=== PATIENT | male | born 1985 | race Caucasian/White ===

== ENCOUNTER 2016-10-16 20:31 | Emergency (ER) | payer OTHER ==
[~2016-10-16] VITALS: Ht 190.5 cm; Wt 81.6 kg
[~2016-10-16 20:31] MED LIST: CIPROFLOXACIN500 MG PO; CLARITIN10 MG PO; METRONIDAZOLE500 MG PO; MOTRIN800 MG PO; Motrin,Rufen800 MG PO; Orphenadrine C100 MG PO; PEPCID20 MG PO; PROTONIX TR40 MG PO; ZITHROMAX Z PA250 MG PO; ZOFRAN4 MG PO; [UNRECOGNIZED DRUG - REMARK]
[2016-10-16] MEDS ORDERED: CLINDAMYCIN HC300 MG PO (21:31)
== END 2016-10-16 21:36 | disposition home or self-care (01) ==
LOC: ED 20:31
DX: K02.9 Dental caries, unspecified (principal)

== ENCOUNTER 2016-11-06 14:54 | Emergency (ER) | payer OTHER ==
[~2016-11-06] VITALS: Ht 190.5 cm; Wt 81.6 kg
[~2016-11-06 14:54] MED LIST changes: +CLINDAMYCIN HC300 MG PO
[2016-11-06] MEDS ORDERED: KEFLEX500 M1 PO (16:26)
[2016-11-06] MEDS ORDERED: NAPROSYN500 MG PO (16:26)
== END 2016-11-06 17:37 | disposition home or self-care (01) ==
LOC: ED 14:54
DX: S82.891A Other fracture of right lower leg, initial encounter for closed fracture (principal); S01.01XA Laceration without foreign body of scalp, initial encounter; M54.2 Cervicalgia; M54.6 Pain in thoracic spine; W19.XXXA Unspecified fall, initial encounter; Y93.89 Activity, other specified; Y92.89 Other specified places as the place of occurrence of the external cause; Y99.9 Unspecified external cause status

== ENCOUNTER 2017-10-27 12:40 | Emergency (ER) | payer OTHER ==
[~2017-10-27] VITALS: Ht 190.5 cm; Wt 61.2 kg
--- NOTE | ~2017-10-27 | EKG ---
[place], [place] ELECTROCARDIOGRAM REPORT NAME: JENNIFER COHEN UNIT #: [id number] ROOM: DOCTOR: DEEDEE DRAFT REPORT BIRTHDATE: [birth year] [facility] Test Date: 2017-10-27 Test Time: 13:14:20 Pat Name: JENNIFER COHEN Department: Room: Gender: Industrial Electrical Technician: ANTONIO : 1985 Requested By: MARY KATE COREA Order Number: [id number] Reading MD: Franky Agrawal MD Measurements Intervals [place] Rate: 74 P: 84 NH: 140 QRS: 78 QRSD: 91 T: 70 QT: 406 QTc: 451 Interpretive Statements Sinus rhythm LVH by voltage Electronically Signed On 11-01-2017 14:21:02 PDT by Franky Agrawal MD CM:EKGRPT:ELECTROCARDIOGRAM REPORT 1314 1421 MARY KATE MARK DRAFT REPORT MARY KATE CORAE MD
[~2017-10-27 12:40] MED LIST changes: +KEFLEX500 M1 PO; +NAPROSYN500 MG PO
[2017-10-27 13:41] LABS: BASO % 0.9 % (0.0-1.0); EOS # 0.1 10*3/uL (0.0-0.4); EOS % 2.8 % (1.0-4.0); HEMATOCRIT 46.2 % (42.0-52.0); HEMOGLOBIN 15.3 g/dl (14.0-18.0); LYMPH # 1.1 10*3/uL (1.3-4.4); LYMPH % 23.9 % (27.0-41.0); MEAN CELL VOLUME 90.1 fl (80.0-94.0); MEAN CORPUSCULAR HGB 29.8 pg (27.0-31.0); MEAN CORPUSCULAR HGB CONC 33.1 g/dl (33.0-37.0); MEAN PLATELET VOLUME 9.7 fl (9.6-12.3); MONO # 0.3 10*3/uL (0.1-1.0); MONO % 6.8 % (3.0-9.0); NEUT # 3.1 10*3/uL (2.3-7.9); NEUT % 65.4 % (47.0-73.0); PLATELET COUNT AUTOMATED 179 10*3/uL (130-400); RED BLOOD COUNT 5.13 10*6/uL (4.50-5.90); RED CELL DISTRI WIDTH 12.4 % (0-14.5); WHITE BLOOD COUNT 4.7 10*3/uL (4.8-10.8)
[2017-10-27 13:47] LABS: ACT PARTIAL THROMBO TIME 24.8 SECONDS (20.8-31.5)
[2017-10-27 13:51] LABS: ALBUMIN 4.5 gm/dl (3.1-4.5); ALKALINE PHOSPHATASE 88 U/L (45-117); BUN 13 mg/dl (7-24); CHLORIDE 105 mmol/L (98-107); POTASSIUM 4.1 mmol/L (3.5-5.1); SGOT/AST 28 IU/L (3-35); SGPT/ALT 23 U/L (12-78); SODIUM 142 mmol/L (136-145); TOTAL PROTEIN 7.7 gm/dL (6.4-8.2)
[2017-10-27 14:01] LABS: TROPONIN I < 0.015 ng/ml (<0.045)
[2017-10-27 15:10] LABS: URINE AMPHETAMINES < 1000 (1000ng/ml); URINE BARBITURATES < 200 (200ng/ml); URINE BENZODIAZEPINES < 200 (200ng/ml); URINE CANNABINOIDS (THC) < 50 (50ng/ml); URINE COCAINE < 300 (300ng/ml); URINE METHADONE < 300 (300ng/ml); URINE OPIATES < 300 (300ng/ml); URINE PHENCYCLIDINE < 25 (25ng/ml)
== END 2017-10-27 17:38 | disposition home or self-care (01) ==
LOC: ED 12:40
PROVIDERS: Emergency Medicine
DX: R07.89 Other chest pain (principal)

== ENCOUNTER 2018-02-03 12:01 | Emergency (ER) | payer OTHER ==
[~2018-02-03] VITALS: Ht 187.9 cm; Wt 54.4 kg
[2018-02-03 12:59] LABS: BASO % 0.2 % (0.0-1.0); EOS % 0.4 % (1.0-4.0); HEMOGLOBIN 13.7 g/dl (14.0-18.0); LYMPH # 0.9 10*3/uL (1.3-4.4); MEAN CELL VOLUME 87.3 fl (80.0-94.0); MEAN CORPUSCULAR HGB 29.9 pg (27.0-31.0); MEAN CORPUSCULAR HGB CONC 34.3 g/dl (33.0-37.0); MEAN PLATELET VOLUME 9.8 fl (9.6-12.3); MONO # 0.6 10*3/uL (0.1-1.0); MONO % 6.3 % (3.0-9.0); NEUT # 7.9 10*3/uL (2.3-7.9); NEUT % 83.9 % (47.0-73.0); PLATELET COUNT AUTOMATED 141 10*3/uL (130-400); RED BLOOD COUNT 4.58 10*6/uL (4.50-5.90); RED CELL DISTRI WIDTH 12.4 % (0-14.5); WHITE BLOOD COUNT 9.4 10*3/uL (4.8-10.8)
[2018-02-03 13:15] LABS: ALBUMIN 3.4 gm/dl (3.1-4.5); ALKALINE PHOSPHATASE 70 U/L (45-117); BUN 14 mg/dl (7-24); CHLORIDE 105 mmol/L (98-107); CREATININE 0.81 mg/dL (0.70-1.30); LIPASE 80 U/L (73-393); POTASSIUM 3.6 mmol/L (3.5-5.1); SGOT/AST 16 IU/L (3-35); SGPT/ALT 15 U/L (12-78); SODIUM 140 mmol/L (136-145); TOTAL PROTEIN 6.7 gm/dL (6.4-8.2)
[2018-02-03 13:33] LABS: BILIRUBIN NEGATIVE (NEGATIVE); BLOOD NEGATIVE (NEGATIVE); CLARITY CLEAR (CLEAR); COLOR YELLOW (YELLOW); GLUCOSE NEGATIVE (NEGATIVE); KETONE TRACE (NEGATIVE); LEUKO ESTERASE NEGATIVE (NEGATIVE); NITRITE POSITIVE (NEGATIVE)
[2018-02-03 13:57] LABS: MUCOUS 1+; RBC 0-2 rbc/hpf (0-2)
[2018-02-03] MEDS ORDERED: MIRALAX POWDER17 G1 PO (14:06)
[2018-02-03] MEDS ORDERED: CIPRO500 MG PO (14:06)
== END 2018-02-03 14:09 | disposition home or self-care (01) ==
LOC: ED 12:01
PROVIDERS: Physician Assistant
DX: N39.0 Urinary tract infection, site not specified (principal); K59.00 Constipation, unspecified; R05 Cough

== ENCOUNTER 2018-05-29 16:10 | Emergency (ER) | payer OTHER ==
[~2018-05-29] VITALS: Ht 193 cm; Wt 59.0 kg
[~2018-05-29 16:10] MED LIST changes: +CIPRO500 MG PO; +MIRALAX POWDER17 G1 PO
[2018-05-29] MEDS ORDERED: AUGMENTIN 875875 MG PO (16:40)
[2018-05-29] MEDS ORDERED: ZYRTEC10 MG PO (16:40)
[2018-05-29] MEDS ORDERED: FLONASE ALLERG9.9 ML NAS (16:40)
[2018-05-29] MEDS ORDERED: Tobrex Ophth S2.5 ML OPH (16:40)
== END 2018-05-29 17:14 | disposition home or self-care (01) ==
LOC: ED 16:10
DX: J01.00 Acute maxillary sinusitis, unspecified (principal); H10.9 Unspecified conjunctivitis; F17.200 Nicotine dependence, unspecified, uncomplicated; Z79.2 Long term (current) use of antibiotics; Z79.899 Other long term (current) drug therapy

== ENCOUNTER 2018-08-29 22:34 | Emergency (ER) | payer OTHER ==
[~2018-08-29] VITALS: Ht 190.5 cm; Wt 60.8 kg
[~2018-08-29 22:34] MED LIST changes: +AUGMENTIN 875875 MG PO; +FLONASE ALLERG9.9 ML NAS; +Tobrex Ophth S2.5 ML OPH; +ZYRTEC10 MG PO
[2018-08-29 23:10] LABS: HEMATOCRIT 43.6 % (42.0-52.0); HEMOGLOBIN 14.8 g/dl (14.0-18.0); MEAN CELL VOLUME 88.3 fl (80.0-94.0); MEAN CORPUSCULAR HGB CONC 33.9 g/dl (33.0-37.0); MEAN PLATELET VOLUME 9.7 fl (9.6-12.3); PLATELET COUNT AUTOMATED 148 10*3/uL (130-400); RED BLOOD COUNT 4.94 10*6/uL (4.50-5.90); RED CELL DISTRI WIDTH 12.9 % (0-14.5); WHITE BLOOD COUNT 7.8 10*3/uL (4.8-10.8)
[2018-08-29 23:26] LABS: ALBUMIN 3.8 gm/dl (3.1-4.5); ALKALINE PHOSPHATASE 67 U/L (45-117); BUN 20 mg/dl (7-24); CHLORIDE 104 mmol/L (98-107); CREATININE 0.82 mg/dL (0.70-1.30); LIPASE 43 U/L (73-393); SGOT/AST 18 IU/L (3-35); SGPT/ALT 19 U/L (12-78); SODIUM 139 mmol/L (136-145)
[2018-08-29 23:32] LABS: PLATELET SUFFICIENCY LOW (NORMAL); TOTAL CELLS COUNTED 100 #CELLS
== END 2018-08-30 01:37 | disposition home or self-care (01) ==
LOC: ED 22:34
PROVIDERS: Student in an Organized Health Care Education/Training Program
DX: R11.2 Nausea with vomiting, unspecified (principal); R10.32 Left lower quadrant pain; R30.0 Dysuria; Z79.2 Long term (current) use of antibiotics; Z79.899 Other long term (current) drug therapy

== ENCOUNTER 2018-11-07 17:29 | Emergency (ER) | payer OTHER ==
[~2018-11-07] VITALS: Ht 190.5 cm; Wt 59.4 kg
[2018-11-07] MEDS ORDERED: LIDEX 0.05% CRE15 GM T (17:44)
== END 2018-11-07 18:19 | disposition home or self-care (01) ==
LOC: ED 17:29
DX: T63.441A Toxic effect of venom of bees, accidental (unintentional), initial encounter (principal); L53.0 Toxic erythema; Z79.2 Long term (current) use of antibiotics; Z79.899 Other long term (current) drug therapy; Y92.89 Other specified places as the place of occurrence of the external cause

== ENCOUNTER 2019-03-14 17:55 | Emergency (ER) | payer OTHER ==
[~2019-03-14] VITALS: Ht 193 cm; Wt 65.8 kg
[~2019-03-14 17:55] MED LIST changes: +LIDEX 0.05% CRE15 GM T
[2019-03-14] MEDS ORDERED: PENICILLIN VK500 MG PO (18:26)
== END 2019-03-14 18:35 | disposition home or self-care (01) ==
LOC: ED 17:55
DX: K04.7 Periapical abscess without sinus (principal); G43.909 Migraine, unspecified, not intractable, without status migrainosus

== ENCOUNTER 2020-03-25 17:13 | Emergency (ER) | payer OTHER ==
[~2020-03-25] VITALS: Wt 59.0 kg
[~2020-03-25 17:13] MED LIST changes: +PENICILLIN VK500 MG PO
[2020-03-25 19:11] LABS: BASO % 0.3 % (0.0-1.0); EOS # 0.1 10*3/uL (0.0-0.4); HEMATOCRIT 43.6 % (42.0-52.0); LYMPH # 0.8 10*3/uL (1.3-4.4); LYMPH % 11.8 % (27.0-41.0); MEAN CELL VOLUME 86.5 fl (80.0-94.0); MEAN CORPUSCULAR HGB 28.6 pg (27.0-31.0); MONO # 0.3 10*3/uL (0.1-1.0); MONO % 5.1 % (3.0-9.0); NEUT # 5.4 10*3/uL (2.3-7.9); NEUT % 81.5 % (47.0-73.0); PLATELET COUNT AUTOMATED 184 10*3/uL (130-400); RED BLOOD COUNT 5.04 10*6/uL (4.50-5.90); WHITE BLOOD COUNT 6.7 10*3/uL (4.8-10.8)
[2020-03-25 19:27] LABS: ALKALINE PHOSPHATASE 66 U/L (45-117); BUN 17 mg/dl (7-24); CHLORIDE 107 mmol/L (98-107); CREATININE 0.79 mg/dL (0.70-1.30); LIPASE 73 U/L (73-393); POTASSIUM 3.9 mmol/L (3.5-5.1); SGPT/ALT 19 U/L (12-78); SODIUM 139 mmol/L (136-145); TOTAL PROTEIN 7.3 gm/dL (6.4-8.2)
[2020-03-25 19:30] LABS: SGOT/AST 19 IU/L (3-35)
== END 2020-03-25 19:51 | disposition home or self-care (01) ==
LOC: ED 17:13
PROVIDERS: Internal Medicine
DX: B34.9 Viral infection, unspecified (principal); Z20.828 Contact with and (suspected) exposure to other viral communicable diseases

== ENCOUNTER 2020-06-08 16:51 | Emergency (ER) | payer OTHER ==
[~2020-06-08] VITALS: Wt 77.1 kg
[2020-06-08] MEDS ORDERED: NAPROXEN250 MG PO (17:40)
[2020-06-08] MEDS ORDERED: TYLENOL325 M1 PO (17:40)
== END 2020-06-08 17:42 | disposition home or self-care (01) ==
LOC: ED 16:51
DX: K08.89 Other specified disorders of teeth and supporting structures (principal); H02.843 Edema of right eye, unspecified eyelid; G43.909 Migraine, unspecified, not intractable, without status migrainosus

== ENCOUNTER 2020-10-26 19:03 | Emergency (ER) | payer OTHER ==
[~2020-10-26] VITALS: Ht 190.5 cm; Wt 54.4 kg
[~2020-10-26 19:03] MED LIST changes: +NAPROXEN250 MG PO; +TYLENOL325 M1 PO
[2020-10-26 19:32] LABS: BASO % 0.3 % (0.0-1.0); EOS # 0.1 10*3/uL (0.0-0.4); EOS % 1.5 % (1.0-4.0); HEMATOCRIT 40.8 % (42.0-52.0); LYMPH # 1.1 10*3/uL (1.3-4.4); LYMPH % 14.2 % (27.0-41.0); MEAN CORPUSCULAR HGB 28.8 pg (27.0-31.0); MEAN CORPUSCULAR HGB CONC 33.1 g/dl (33.0-37.0); MEAN PLATELET VOLUME 9.8 fl (9.6-12.3); MONO # 0.6 10*3/uL (0.1-1.0); MONO % 7.5 % (3.0-9.0); NEUT % 76.4 % (47.0-73.0); PLATELET COUNT AUTOMATED 184 10*3/uL (130-400); RED BLOOD COUNT 4.69 10*6/uL (4.50-5.90); RED CELL DISTRI WIDTH 12.2 % (0-14.5); WHITE BLOOD COUNT 7.8 10*3/uL (4.8-10.8)
[2020-10-26 19:47] LABS: ALBUMIN 3.7 gm/dl (3.1-4.5); ALKALINE PHOSPHATASE 77 U/L (45-117); BUN 17 mg/dl (7-24); CHLORIDE 106 mmol/L (98-107); CREATININE 0.79 mg/dL (0.70-1.30); SGOT/AST 18 IU/L (3-35); SGPT/ALT 14 U/L (12-78); SODIUM 139 mmol/L (136-145); TOTAL PROTEIN 7.2 gm/dL (6.4-8.2)
[2020-10-26] MEDS ORDERED: AUGMENTIN 875-875 MG PO (20:10)
[2020-10-26] MEDS ORDERED: PREDNISONE20 M1 PO (20:10)
== END 2020-10-26 20:30 | disposition home or self-care (01) ==
LOC: ED 19:03
PROVIDERS: Emergency Medicine
DX: J01.10 Acute frontal sinusitis, unspecified (principal); Z79.899 Other long term (current) drug therapy

== ENCOUNTER 2021-06-26 10:41 | Emergency (ER) | payer OTHER ==
[~2021-06-26] VITALS: Wt 49.9 kg
[~2021-06-26 10:41] MED LIST changes: +AUGMENTIN 875-875 MG PO; +PREDNISONE20 M1 PO
== END 2021-06-26 11:45 | disposition home or self-care (01) ==
LOC: ED 10:41
DX: S82.832A Other fracture of upper and lower end of left fibula, initial encounter for closed fracture (principal); W18.40XA Slipping, tripping and stumbling without falling, unspecified, initial encounter; Y93.89 Activity, other specified; Y92.89 Other specified places as the place of occurrence of the external cause; Y99.8 Other external cause status

== ENCOUNTER → 2021-07-03 | Outpatient (CLI) | payer OTHER ==
[~2021-07-03] MED LIST changes: +CRUTCHES DEVI; +TRAMADOL HCL50 MG PO; +VIBRAMYCIN100 MG PO; +XARELTO10 MG PO
== END | disposition home or self-care (01) ==
LOC: CT 08:53
PROVIDERS: ATTEND Podiatrist Foot & Ankle Surgery
DX: S82.892A Other fracture of left lower leg, initial encounter for closed fracture (principal); X58.XXXA Exposure to other specified factors, initial encounter; Y93.89 Activity, other specified; Y92.89 Other specified places as the place of occurrence of the external cause; Y99.8 Other external cause status

== ENCOUNTER → 2021-07-09 | Day surgery (SDC) | payer OTHER ==
[2021-07-04 14:45] VITALS: BP 142/77
[~2021-07-09] VITALS: Ht 190.5 cm; Wt 72.6 kg
[2021-07-09] VITALS (7 sets, daily range): BP systolic 98–135; BP diastolic 57–79
== END | disposition home or self-care (01) ==
LOC: SDC 07-04 14:00
PROVIDERS: ATTEND Podiatrist
DX: S82.852A Displaced trimalleolar fracture of left lower leg, initial encounter for closed fracture (principal); X58.XXXA Exposure to other specified factors, initial encounter; Y93.89 Activity, other specified; Y92.89 Other specified places as the place of occurrence of the external cause; Y99.8 Other external cause status

== ENCOUNTER 2021-07-21 10:53 | Emergency (ER) | payer OTHER ==
[~2021-07-21] VITALS: Ht 190.5 cm; Wt 83.9 kg
[2021-07-21 11:32] LABS: EOS # 0.1 10*3/uL (0.0-0.4); EOS % 4.5 % (1.0-4.0); HEMATOCRIT 44.4 % (42.0-52.0); LYMPH # 1.1 10*3/uL (1.3-4.4); MEAN CELL VOLUME 84.6 fl (80.0-94.0); MEAN CORPUSCULAR HGB 28.6 pg (27.0-31.0); MEAN CORPUSCULAR HGB CONC 33.8 g/dl (33.0-37.0); MEAN PLATELET VOLUME 9.8 fl (9.6-12.3); MONO # 0.2 10*3/uL (0.1-1.0); MONO % 6.8 % (3.0-9.0); NEUT # 1.6 10*3/uL (2.3-7.9); NEUT % 52.7 % (47.0-73.0); PLATELET COUNT AUTOMATED 177 10*3/uL (130-400); RED BLOOD COUNT 5.25 10*6/uL (4.50-5.90); RED CELL DISTRI WIDTH 12.3 % (0-14.5); WHITE BLOOD COUNT 3.1 10*3/uL (4.8-10.8)
[2021-07-21 11:48] LABS: ALKALINE PHOSPHATASE 83 U/L (45-117); BUN 15 mg/dl (7-24); CHLORIDE 104 mmol/L (98-107); CREATININE 0.76 mg/dL (0.70-1.30); LIPASE 66 U/L (73-393); POTASSIUM 3.8 mmol/L (3.5-5.1); SGOT/AST 18 IU/L (3-35); SGPT/ALT 17 U/L (12-78); SODIUM 139 mmol/L (136-145); TOTAL PROTEIN 7.1 gm/dL (6.4-8.2)
[2021-07-21 14:33] LABS: BILIRUBIN Negative (Negative); BLOOD Negative (Negative); CLARITY Clear (Clear); COLOR Yellow (Yellow); GLUCOSE Negative (Negative); KETONE Negative (Negative); LEUKO ESTERASE Negative (Negative); NITRITE Negative (Negative); PH 7.5 (4.5-8.0); SPECIFIC GRAVITY >= 1.030 (1.001-1.030); UROBILINOGEN 0.2 E.U./dl (0.0-1.0)
[2021-07-21 14:46] LABS: RBC 0-2 rbc/hpf (0-2)
[2021-07-21] MEDS ORDERED: MIRALAX POWDER17 G1 PO (14:52)
== END 2021-07-21 14:54 | disposition home or self-care (01) ==
LOC: ED 10:53
PROVIDERS: Physician Assistant
DX: K59.00 Constipation, unspecified (principal); R11.10 Vomiting, unspecified

== ENCOUNTER 2021-08-03 13:30 | Emergency (ER) | payer OTHER ==
[~2021-08-03] VITALS: Ht 193 cm; Wt 49.9 kg
[2021-08-03 14:04] LABS: BASO % 0.4 % (0.0-1.0); EOS % 0.2 % (1.0-4.0); HEMATOCRIT 41.9 % (42.0-52.0); LYMPH # 0.6 10*3/uL (1.3-4.4); MEAN CORPUSCULAR HGB 28.5 pg (27.0-31.0); MEAN CORPUSCULAR HGB CONC 33.9 g/dl (33.0-37.0); MEAN PLATELET VOLUME 10.4 fl (9.6-12.3); MONO # 0.5 10*3/uL (0.1-1.0); MONO % 8.9 % (3.0-9.0); NEUT # 4.5 10*3/uL (2.3-7.9); NEUT % 80.3 % (47.0-73.0); PLATELET COUNT AUTOMATED 124 10*3/uL (130-400); RED BLOOD COUNT 4.99 10*6/uL (4.50-5.90); RED CELL DISTRI WIDTH 12.6 % (0-14.5); WHITE BLOOD COUNT 5.6 10*3/uL (4.8-10.8)
[2021-08-03 14:24] LABS: ALKALINE PHOSPHATASE 72 U/L (45-117); BUN 15 mg/dl (7-24); CHLORIDE 105 mmol/L (98-107); CREATININE 0.86 mg/dL (0.70-1.30); LIPASE 75 U/L (73-393); POTASSIUM 3.7 mmol/L (3.5-5.1); SGOT/AST 28 IU/L (3-35); SGPT/ALT 31 U/L (12-78); SODIUM 139 mmol/L (136-145); TOTAL PROTEIN 6.8 gm/dL (6.4-8.2)
== END 2021-08-03 14:58 | disposition home or self-care (01) ==
LOC: ED 13:30
PROVIDERS: Emergency Medicine
DX: R42 Dizziness and giddiness (principal)

== ENCOUNTER 2022-01-14 22:14 | Emergency (ER) | payer OTHER ==
[~2022-01-14] VITALS: Ht 182.8 cm; Wt 68.0 kg
[2022-01-14 22:28] LABS: BASO % 0.3 % (0.0-1.0); EOS # 0.1 10*3/uL (0.0-0.4); EOS % 2.4 % (1.0-4.0); HEMATOCRIT 40.5 % (42.0-52.0); LYMPH # 0.9 10*3/uL (1.3-4.4); MEAN CELL VOLUME 87.9 fl (80.0-94.0); MEAN CORPUSCULAR HGB 29.5 pg (27.0-31.0); MEAN CORPUSCULAR HGB CONC 33.6 g/dl (33.0-37.0); MEAN PLATELET VOLUME 9.9 fl (9.6-12.3); MONO # 0.4 10*3/uL (0.1-1.0); MONO % 11.9 % (3.0-9.0); NEUT # 1.6 10*3/uL (2.3-7.9); NEUT % 55.1 % (47.0-73.0); PLATELET COUNT AUTOMATED 148 10*3/uL (130-400); RED BLOOD COUNT 4.61 10*6/uL (4.50-5.90); RED CELL DISTRI WIDTH 13.1 % (0-14.5); WHITE BLOOD COUNT 2.9 10*3/uL (4.8-10.8)
[2022-01-14 22:49] LABS: ALKALINE PHOSPHATASE 61 U/L (45-117); BUN 19 mg/dl (7-24); CHLORIDE 108 mmol/L (98-107); CREATININE 0.92 mg/dL (0.70-1.30); POTASSIUM 3.6 mmol/L (3.5-5.1); SGOT/AST 39 IU/L (3-35); SGPT/ALT 65 U/L (12-78); SODIUM 141 mmol/L (136-145); TOTAL PROTEIN 6.6 gm/dL (6.4-8.2)
[2022-01-14] MEDS ORDERED: ONDANSETRON4 MG SL (23:07)
== END 2022-01-14 23:17 | disposition home or self-care (01) ==
LOC: ED 22:14
PROVIDERS: Internal Medicine
DX: U07.1 COVID-19 (principal); R11.2 Nausea with vomiting, unspecified; R19.7 Diarrhea, unspecified

== ENCOUNTER 2022-01-25 23:47 | Emergency (ER) | payer OTHER ==
[~2022-01-25] VITALS: Ht 177.8 cm; Wt 68.0 kg
[~2022-01-25 23:47] MED LIST changes: +ONDANSETRON4 MG SL
[2022-01-26 00:35] LABS: BASO % 0.6 % (0.0-1.0); EOS # 0.2 10*3/uL (0.0-0.4); EOS % 2.4 % (1.0-4.0); HEMATOCRIT 39.6 % (42.0-52.0); MEAN CELL VOLUME 87.2 fl (80.0-94.0); MEAN CORPUSCULAR HGB 29.1 pg (27.0-31.0); MEAN CORPUSCULAR HGB CONC 33.3 g/dl (33.0-37.0); MEAN PLATELET VOLUME 9.5 fl (9.6-12.3); MONO # 0.5 10*3/uL (0.1-1.0); MONO % 7.3 % (3.0-9.0); NEUT # 3.6 10*3/uL (2.3-7.9); NEUT % 57.4 % (47.0-73.0); PLATELET COUNT AUTOMATED 231 10*3/uL (130-400); RED BLOOD COUNT 4.54 10*6/uL (4.50-5.90); RED CELL DISTRI WIDTH 12.9 % (0-14.5); WHITE BLOOD COUNT 6.3 10*3/uL (4.8-10.8)
[2022-01-26 01:12] LABS: ALKALINE PHOSPHATASE 63 U/L (45-117); BUN 15 mg/dl (7-24); CHLORIDE 108 mmol/L (98-107); CREATININE 0.82 mg/dL (0.70-1.30); POTASSIUM 3.3 mmol/L (3.5-5.1); SGOT/AST 19 IU/L (3-35); SGPT/ALT 24 U/L (12-78); SODIUM 143 mmol/L (136-145); TOTAL PROTEIN 6.6 gm/dL (6.4-8.2)
[2022-01-26 01:21] LABS: THYROID STIM HORMONE (HS) 0.904 uIU/ml (0.358-4.75)
[2022-01-26 02:24] LABS: URINE AMPHETAMINES < 1000 (1000ng/ml); URINE BARBITURATES < 200 (200ng/ml); URINE BENZODIAZEPINES < 200 (200ng/ml); URINE CANNABINOIDS (THC) > 50 (50ng/ml); URINE COCAINE < 300 (300ng/ml); URINE METHADONE < 300 (300ng/ml); URINE OPIATES < 300 (300ng/ml)
[2022-01-26 02:25] LABS: URINE PHENCYCLIDINE < 25 (25ng/ml)
== END 2022-01-26 03:06 | disposition home or self-care (01) ==
LOC: ED 23:47
PROVIDERS: Emergency Medicine
DX: F12.19 Cannabis abuse with unspecified cannabis-induced disorder (principal)

== ENCOUNTER 2022-03-17 19:15 | Emergency (ER) | payer OTHER ==
[~2022-03-17] VITALS: Ht 182.8 cm; Wt 77.1 kg
[2022-03-17] MEDS ORDERED: METHOCARBAMOL500 M1 PO (20:16)
[2022-03-17] MEDS ORDERED: NAPROXEN250 MG PO (20:16)
== END 2022-03-17 21:11 | disposition home or self-care (01) ==
LOC: ED 19:15
DX: M25.511 Pain in right shoulder (principal); M25.562 Pain in left knee; M25.551 Pain in right hip

== ENCOUNTER 2022-05-23 11:48 | Emergency (ER) | payer OTHER ==
[~2022-05-23] VITALS: Ht 185.4 cm; Wt 61.7 kg
[~2022-05-23 11:48] MED LIST changes: +METHOCARBAMOL500 M1 PO
== END 2022-05-23 14:05 | disposition home or self-care (01) ==
LOC: ED 11:48
DX: H10.11 Acute atopic conjunctivitis, right eye (principal)

== ENCOUNTER → 2022-06-25 | Outpatient (CLI) | payer OTHER | END | disposition home or self-care (01) | LOC: RAD/SH 02:10 | PROVIDERS: ATTEND Nurse Practitioner Family | DX: R13.12 Dysphagia, oropharyngeal phase (principal) ==

== ENCOUNTER 2023-01-03 19:45 | Emergency (ER) | payer OTHER ==
[~2023-01-03] VITALS: Ht 190.5 cm; Wt 81.6 kg
[2023-01-03] MEDS ORDERED: PENICILLIN VK500 MG PO (20:08)
== END 2023-01-03 20:11 | disposition home or self-care (01) ==
LOC: ED 19:45
DX: K02.9 Dental caries, unspecified (principal); K08.89 Other specified disorders of teeth and supporting structures; Z98.890 Other specified postprocedural states

== ENCOUNTER 2023-04-29 08:06 | Emergency (ER) | payer OTHER ==
[~2023-04-29] VITALS: Ht 193 cm; Wt 59.0 kg
[2023-04-29 09:32] LABS: BASO % 0.1 % (0.0-1.0); EOS % 0.4 % (1.0-4.0); HEMATOCRIT 42.3 % (42.0-52.0); LYMPH # 0.3 10*3/uL (1.3-4.4); LYMPH % 4.3 % (27.0-41.0); MEAN CELL VOLUME 89.4 fl (80.0-94.0); MEAN CORPUSCULAR HGB 28.8 pg (27.0-31.0); MEAN CORPUSCULAR HGB CONC 32.2 g/dl (33.0-37.0); MONO # 0.4 10*3/uL (0.1-1.0); NEUT # 6.3 10*3/uL (2.3-7.9); NEUT % 88.9 % (47.0-73.0); PLATELET COUNT AUTOMATED 135 10*3/uL (130-400); RED BLOOD COUNT 4.73 10*6/uL (4.50-5.90); RED CELL DISTRI WIDTH 12.3 % (0-14.5)
[2023-04-29 09:43] LABS: ACT PARTIAL THROMBO TIME 30.3 SECONDS (20.0-32.1)
[2023-04-29 09:51] LABS: ALKALINE PHOSPHATASE 60 U/L (46-116); BUN 13 mg/dl (9-23); CHLORIDE 106 mmol/L (98-107); LIPASE 24 U/L (12-53); POTASSIUM 4.1 mmol/L (3.4-5.1); SGPT/ALT 13 U/L (5-49); TOTAL PROTEIN 6.6 gm/dL (6.0-8.0)
== END 2023-04-29 13:03 | disposition home or self-care (01) ==
LOC: ED 08:06
PROVIDERS: Emergency Medicine
DX: B34.9 Viral infection, unspecified (principal); Z20.822 Contact with and (suspected) exposure to COVID-19; R42 Dizziness and giddiness; R11.10 Vomiting, unspecified; R10.2 Pelvic and perineal pain

== ENCOUNTER 2023-07-06 17:58 | Emergency (ER) | payer OTHER ==
[~2023-07-06] VITALS: Ht 193 cm; Wt 54.4 kg
== END 2023-07-06 20:56 | disposition home or self-care (01) ==
LOC: ED 17:58
DX: S82.891A Other fracture of right lower leg, initial encounter for closed fracture (principal); X50.1XXA Overexertion from prolonged static or awkward postures, initial encounter; Y93.01 Activity, walking, marching and hiking; Y92.89 Other specified places as the place of occurrence of the external cause; Y99.8 Other external cause status

== ENCOUNTER 2024-07-23 09:05 | Emergency (ER) | payer OTHER ==
[~2024-07-23] VITALS: Ht 185.4 cm; Wt 60.3 kg
[2024-07-23] MEDS ORDERED: SODIUM CHLORIDE 0.9% 1,000 ML IV ONE (09:35)
[2024-07-23 09:42] LABS: BASO % 0.4 % (0.0-1.0); EOS % 0.8 % (1.0-4.0); HEMATOCRIT 46.3 % (42.0-52.0); MEAN CELL VOLUME 88.2 fl (80.0-94.0); MEAN CORPUSCULAR HGB 29.9 pg (27.0-31.0); MEAN CORPUSCULAR HGB CONC 33.9 g/dl (33.0-37.0); MEAN PLATELET VOLUME 9.7 fl (9.6-12.3); MONO # 0.5 10*3/uL (0.1-1.0); MONO % 9.3 % (3.0-9.0); NEUT # 3.7 10*3/uL (2.3-7.9); NEUT % 76.3 % (47.0-73.0); PLATELET COUNT AUTOMATED 147 10*3/uL (130-400); RED BLOOD COUNT 5.25 10*6/uL (4.50-5.90); RED CELL DISTRI WIDTH 12.1 % (0-14.5); WHITE BLOOD COUNT 4.9 10*3/uL (4.8-10.8)
[2024-07-23 10:02] LABS: BUN 15 mg/dl (9-23); CHLORIDE 101 mmol/L (98-107); POTASSIUM 3.8 mmol/L (3.4-5.1)
[2024-07-23] MEDS ORDERED: AVPAK AZITHROM250 M1 PO (10:07)
== END 2024-07-23 10:19 | disposition home or self-care (01) ==
LOC: ED 09:05
PROVIDERS: Emergency Medicine
DX: J40 Bronchitis, not specified as acute or chronic (principal); R53.1 Weakness; Z79.899 Other long term (current) drug therapy